=== PATIENT | female | born 1955 | race Caucasian/White ===

== ENCOUNTER 2018-05-16 08:12 | Observation (INO) | payer OTHER ==
[2018-05-14 16:38] LABS: BASOPHILS # (AUTO) 0.1 (0.0-0.1); BASOPHILS % 0.6 % (0.0-1.0); EOSINOPHILS # (AUTO) 0.2 (0.0-0.4); EOSINOPHILS % 2.8 % (0.0-6.0); HEMATOCRIT 40.4 % (34.2-44.1); HEMOGLOBIN 13.3 g/dL (12.0-16.0); LYMPHOCYTES # (AUTO) 2.3 (1.0-3.2); LYMPHOCYTES % 29.3 % (18.0-39.1); MEAN CORPUSCULAR HEMOGLOBIN 29.7 pg (28-32); MEAN CORPUSCULAR HGB CONC 32.9 g/dL (31-35); MEAN CORPUSCULAR VOLUME 90.2 fL (81-99); MONOCYTES # (AUTO) 0.7 (0.2-0.8); NEUTROPHILS # (AUTO) 4.6 (2.1-6.9); PLATELET COUNT 385 x10e3/uL (140-360); RED BLOOD COUNT 4.48 x10e6/uL (3.6-5.1); RED CELL DISTRIBUTION WIDTH 15.9 % (11.7-14.4)
[2018-05-14 16:49] LABS: PARTIAL THROMBOPLASTIN TIME 30.4 seconds (23.8-35.5); PROTHROMBIN TIME 12.4 seconds (11.9-14.5)
[2018-05-14 16:53] LABS: ANION GAP 12.8 mmol/L (8-16); BLOOD UREA NITROGEN 15 mg/dL (7-26); BUN/CREATININE RATIO 19 (6-25); CALCIUM 9.7 mg/dL (8.4-10.2); CARBON DIOXIDE 28 mmol/L (22-29); CHLORIDE 98 mmol/L (98-107); EST GLOMERULAR FILTRATION RATE > 60 ML/MIN (60-); GLUCOSE 88 mg/dL (74-118); POTASSIUM 3.8 mmol/L (3.5-5.1); SODIUM 135 mmol/L (136-145)
--- NOTE | 2018-05-14 17:38 | Diagnostic Imaging Report ---
EXAMINATION: PA and lateral views of the chest. COMPARISON: None CLINICAL HISTORY: Preadmission film for back surgery DISCUSSION: Lines/tubes: None. Lungs: The lungs are well inflated and clear. There is no evidence of pneumonia or pulmonary edema. Pleura: There is no pleural effusion or pneumothorax. Heart and mediastinum: Cardiomediastinal silhouette is unremarkable. Pulmonary vasculature is normal. Bones and soft tissues: No acute bony abnormalities. Mild degenerative changes in the thoracic spine IMPRESSION: No acute cardiopulmonary abnormalities. Signed by: Dr. Ed Rogers M.D. on 05/14/2018 5:35 PM
[~2018-05-16] VITALS: Ht 156.2 cm; Wt 69.9 kg
[~2018-05-16 08:12] MED LIST: ACETAMINOPHEN 1000 MG/100 ML 100 ML IV ONE; ASPIRIN81 MG PO; CLONIDINE HCL0.1 MG PO; FOLIC ACID1 MG PO; IRON PO; LEXAPRO10 MG PO; LIDOCAINE HCL (LTA) 4 ML SOLN ONE; LOSARTAN-HCTZ1 EAC2 PO; MULTI-VITAMIN1 EACH PO; OMEPRAZOLE20 MG PO; PENTASA500 MG PO; VIVELLE-DOT PO
[2018-05-16] MEDS ORDERED: BUPIVACAINE 0.5%/EPI 30 ML SDV INJ ONE (08:37)
[2018-05-16] MEDS ORDERED: THROMBIN FOR SOLN 5,000 UNIT VIAL ONE (08:37)
[2018-05-16] MEDS ORDERED: GELATIN SPONGE SZ 100 ONE (08:37)
[2018-05-16] MEDS ORDERED: BACITRACIN 50,000 UNIT VIAL ONE (08:37)
[2018-05-16] MEDS ORDERED: CEFAZOLIN SOD 1 GM VIAL ONE (09:05)
[2018-05-16] MEDS: LACTATED RINGER'S 1,000 ML IV SCH ×2 (11:34→19:17)
[2018-05-16] MEDS ORDERED: ONDANSETRON HCL INJ 2 MG/ML VIAL IV PRN (11:45)
[2018-05-16] MEDS ORDERED: MORPHINE SULFATE 5 MG/ML VIAL IM PRN (11:45)
[2018-05-16] MEDS ORDERED: MAGNESIUM/ALUMINUM/SIMETHICONE 30 ML UDC PO PRN (11:45)
[2018-05-16] MEDS ORDERED: CEPACOL SORE THROAT LOZENGES PO PRN (11:45)
[2018-05-16] MEDS ORDERED: PROMETHAZINE HCL (IM) 25 MG/ML VIAL IM PRN (11:45)
[2018-05-16] MEDS ORDERED: ACETAMINOPHEN 325 MG TAB PO PRN (11:45)
[2018-05-16] MEDS ORDERED: HYDROMORPHONE 2MG/ML 2 MG/ML ML IV PRN (11:45)
[2018-05-16] MEDS ORDERED: MORPHINE SULFATE 2 MG/ML SYR ONE (11:45)
[2018-05-16 12:23] VITALS: BP 147/75
[2018-05-16 12:25] VITALS: BP 146/86
[2018-05-16 12:34] VITALS: BP 146/86
--- NOTE | 2018-05-16 12:45 | Operative Report ---
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 PROCEDURE: Right L5-S1 laminotomy, medial facetectomy and microsurgical resection of sequestered extruded disk fragment, [id number]. ANESTHESIA: General. INDICATIONS: The patient is a 63-year-old woman who presents with a right S1 radiculopathy due to an epidural mass in the right S1 lateral recess, which appears to be a sequestered disk fragment originating from the L5-S1 disk space. She was taken to the operating room for decompression of the S1 nerve root. PROCEDURE: After induction of general anesthesia, the patient was placed on the operating table in the prone position over a [place] frame. The lumbar region was prepped and draped in sterile fashion. A preoperative x-ray was obtained. A small paramedian incision was created. Lumbar fascia was opened to the right of the midline, and subperiosteal dissection was carried out to expose the right side of L5 and S1 laminae and the medial aspect of the facet joint. The 2nd x-ray confirmed correct localization. The operating microscope was brought in. A high-speed drill equipped with carlyle bur was used to drill the inferior aspect of lamina of L5 and the medial rim of the inferior articular process of L5 and the medial rim of the superior articular process of S1 and the superior rim of the lamina of S1. The ligamentum flavum was resected. The dural sac and the S1 nerve root were exposed. The shoulder of the nerve root was explored. The herniated disk material immediately came into view just under the S1 nerve root and below the level of the L5-S1 disk space. This represented a sequestered disk fragment. The membrane overlying the sequestration at the sequestered disk was opened, and the extruded disk material was mobilized with a micro-ball probe and grasped with a micro-pituitary rongeur and removed. This maneuver was repeated several times probing superiorly, inferiorly and laterally until all the extruded disk was retrieved and the S1 nerve root was fully decompressed. The annulus of the L5-S1 disk was inspected. No significant defect was found. No significant bulging was noted. Therefore, the disk space was not further disrupted. The wound was copiously irrigated with Bacitracin solution. Meticulous hemostasis was secured. A piece of Gelfoam was left in the lateral recess to maintain hemostasis. The lumbar fascia was closed with #0 Vicryl sutures. Subcutaneous layer was closed with 2-0 Vicryl sutures. The skin was closed with 3-0 Monocryl sutures in subcuticular fashion. Steri-Strips and dressing were applied. The patient was awakened and extubated in the postanesthesia care unit in stable condition. No intraoperative complications were encountered. Estimated blood loss was 10 mL. Job#: [id number]
[2018-05-16] MEDS: OXYCODONE/ACETAMINOPHEN 5-325 1 EACH TABLET PO PRN ×2 (13:55→18:33)
[2018-05-16] MEDS: CARISOPRODOL 350 MG TAB PO PRN ×2 (13:55→18:34)
[2018-05-16] MEDS ORDERED: CEFAZOLIN SOD 1 GM/D5W 50ML 50 ML IV SCH (14:00)
[2018-05-16 15:37] VITALS: BP 132/77
[2018-05-16] MEDS ORDERED: GLYCOPYRROLATE INJ 1MG/ 5 ML SYR ONE (15:39)
[2018-05-16] MEDS ORDERED: DEXAMETHASONE SOD PHOS INJ 4 MG/ML VIAL ONE (15:39)
[2018-05-16] MEDS ORDERED: SEVOFLURANE INHAL SOLN 250 ML PEN BTL ONE (15:39)
[2018-05-16] MEDS ORDERED: LIDOCAINE HCL 2% LOCAL INJ 5 ML SDV VIAL INJ ONE (15:39)
[2018-05-16] MEDS ORDERED: ONDANSETRON HCL INJ 2 MG/ML VIAL ONE (15:39)
[2018-05-16] MEDS ORDERED: NEOSTIGMINE 5 MG/5ML SYR ONE (15:39)
[2018-05-16] MEDS ORDERED: ROCURONIUM BROMIDE 10 MG/ML 5ML VIAL ONE (15:39)
[2018-05-16] MEDS ORDERED: PROPOFOL IV EMULSION 10 MG/ML 20 ML VIAL ONE (15:39)
[2018-05-16] MEDS: MESALAMINE 500 MG CAPCR PO SCH (17:17)
[2018-05-16] MEDS: CEFAZOLIN SOD 1 GM VIAL IV SCH (17:17)
[2018-05-16 19:00] VITALS: BP 132/77
[2018-05-16] MEDS ORDERED: FENTANYL CITRATE/PF 100MCG/2 ML INJ ONE (19:12)
[2018-05-16] MEDS ORDERED: MIDAZOLAM HCL 2 MG/2 ML VIAL ONE (19:12)
[2018-05-16 19:50] VITALS: BP 121/62
[2018-05-16] MEDS ORDERED: CLONIDINE HCL 0.1 MG TAB PO SCH (21:00)
[2018-05-16] MEDS ORDERED: ZOLPIDEM TARTRATE 5 MG TAB PO PRN (21:00)
[2018-05-17 00:30] VITALS: BP 106/66
[2018-05-17] MEDS: CARISOPRODOL 350 MG TAB PO PRN ×2 (00:59→10:45)
[2018-05-17] MEDS: OXYCODONE/ACETAMINOPHEN 5-325 1 EACH TABLET PO PRN ×2 (00:59→10:45)
[2018-05-17] MEDS: CEFAZOLIN SOD 1 GM VIAL IV SCH ×2 (01:00→10:09)
[2018-05-17 05:00] VITALS: BP 107/65
[2018-05-17] MEDS ORDERED: PANTOPRAZOLE SOD 40 MG TABEC PO SCH (07:30)
[2018-05-17 07:52] VITALS: BP 116/74
[2018-05-17 08:19] VITALS: BP 116/74
[2018-05-17] MEDS: MESALAMINE 500 MG CAPCR PO SCH (08:47)
[2018-05-17] MEDS ORDERED: LOSARTAN POTASSIUM 100 MG TAB PO SCH (09:00)
[2018-05-17] MEDS ORDERED: ESCITALOPRAM OXALATE 10 MG TAB PO SCH (09:00)
== END 2018-05-17 11:36 | disposition home or self-care (01) ==
LOC: OR 08:12 → PACU V 11:35 → IMCU 12:13
PROVIDERS: ADMIT Neurological Surgery; ATTEND Neurological Surgery
DX: M51.17 Intervertebral disc disorders with radiculopathy, lumbosacral region (principal); I10 Essential (primary) hypertension; K58.9 Irritable bowel syndrome, unspecified; F17.210 Nicotine dependence, cigarettes, uncomplicated; Z88.1 Allergy status to other antibiotic agents; Z01.810 Encounter for preprocedural cardiovascular examination; Z01.812 Encounter for preprocedural laboratory examination; Z01.811 Encounter for preprocedural respiratory examination
CPT/HCPCS: 36415; 63047; 71046; 72020; 80048; 85025; 85610; 85730; 86850; 86900; 88304; 93005; G0378 ×2; J0690 ×2; J1100; J2001; J2250; J2270; J2405; J3490; S0164

== ENCOUNTER → 2022-04-13 | Outpatient (CLI) | payer MEDICARE, OTHER ==
[~2022-04-13] MED LIST changes: -ACETAMINOPHEN 1000 MG/100 ML 100 ML IV ONE; -LIDOCAINE HCL (LTA) 4 ML SOLN ONE
== END ==
LOC: RAD 10:45
PROVIDERS: ATTEND Nurse Practitioner Adult Health
DX: R60.0 Localized edema (principal)
CPT/HCPCS: 93970